=== PATIENT | female | born 1990 ===

== ENCOUNTER 2019-05-04 21:07 | Inpatient (IN) | payer OTHER ==
[~2019-05-04] VITALS: Ht 162.6 cm; Wt 69.4 kg
[2019-05-04 21:30] VITALS: BP 121/77; Ht 162.6 cm; Wt 69.4 kg
[2019-05-04] MEDS ORDERED: PREN-127 PO (21:44)
[2019-05-04] MEDS ORDERED: FAMOTIDINE(*) 20MG/50ML PREMIX 50 ML IVPB PRN (22:01)
[2019-05-04] MEDS ORDERED: OXYTOCIN 30 UNIT/NS 500 ML 500 ML IV PRN (22:01)
[2019-05-04] MEDS ORDERED: LR(*) 1000 ML BAG 1,000 ML IV SCH (22:01)
[2019-05-04] MEDS ORDERED: LIDOCAINE 1% LOCAL 300 MG/30ML INJ PRN (22:05)
[2019-05-04] MEDS ORDERED: fentaNYL CITR 100 MCG/2 ML AMP IVP PRN (22:05)
[2019-05-04] MEDS ORDERED: METOCLOPRAMIDE 10 MG/2 ML SDV IVP PRN (22:05)
[2019-05-04] MEDS ORDERED: LIDOCAINE/SOD BICARB 8.4% SYR SC PRN (22:05)
[2019-05-04] MEDS ORDERED: cefOXitin/DEX(*) 2GM/50ML PREM 50 ML IVPB PRN (22:05)
[2019-05-04] MEDS ORDERED: PENICILLIN G 5 MILLUN VIAL 5 MIU in NS(*) 0.9% 100 ML MINI-BAG 100 ML IVPB ONE (22:05)
[2019-05-04] MEDS ORDERED: fentaNYL CITR 100 MCG/2 ML AMP IT PRN (22:15)
[2019-05-04] MEDS ORDERED: BUPIVACAINE 0.25% MPF INJ EPI PRN (22:15)
[2019-05-04] MEDS ORDERED: LIDOCAINE/PF 2% 200MG/10ML AMP 200 MG/10 ML AMPUL EPI PRN (22:15)
[2019-05-04] MEDS ORDERED: BUPIVACAINE 0.5% INJ 30ML VIAL EPI PRN (22:15)
[2019-05-04] MEDS ORDERED: LIDO/EPI 2% MPF 1:200,000 20ML EPI PRN (22:15)
[2019-05-04] MEDS ORDERED: FENTANYL/ROPIVACAINE 100 ML BAG EPI PRN (22:15)
[2019-05-04] MEDS ORDERED: ePHEDrine 25 MG/5 ML DISP.SYR IVP PRN (22:15)
[2019-05-04 22:41] LABS: PLATELET COUNT, AUTOMATED 231 K/uL (150-450)
[2019-05-05] MEDS ORDERED: CALCIUM CARBONATE 500 MG CHEW PO PRN (01:20)
[2019-05-05] MEDS ORDERED: ACETAMINOPHEN 325 MG TAB PO PRN ×2 (01:20→09:30)
[2019-05-05] MEDS ORDERED: ONDANSETRON 4 MG/2 ML VIAL IVP PRN (01:20)
[2019-05-05] MEDS ORDERED: PENICILLIN G 2.5 MILLUN/100 ML 100 ML IVPB SCH ×3 (02:00→18:00)
[2019-05-05] MEDS ORDERED: OXYTOCIN 30 UNIT/NS 500 ML 500 ML IV PRN (02:19)
[2019-05-05] MEDS ORDERED: GLYCERIN/WITCH HAZEL LEAF 1 PK TP PRN (09:30)
[2019-05-05] MEDS ORDERED: MAGNESIUM HYDROXIDE* 30ML UDCP PO PRN (09:30)
[2019-05-05] MEDS ORDERED: APAP/HYDROCODONE 325/5 TAB PO PRN (09:30)
[2019-05-05] MEDS ORDERED: BENZOCAINE 20% 60 ML BTL TP PRN (09:30)
[2019-05-05] MEDS ORDERED: INFLUENZA VIRUS VAC 0.5ML SYR IM ONLY ONE (09:30)
[2019-05-05] MEDS ORDERED: HYDROCORTISONE 2.5% CR 30GM TB PR PRN (09:30)
[2019-05-05] MEDS ORDERED: LANOLIN OINT 7 GM TUBE TP PRN (09:30)
--- NOTE | 2019-05-05 09:39 | History & Physical ---
History of Present Illness Age of Patient: 28 : 2 Para or TPAL: 0 EDC per LMP: May 22, 2019 Estimated Gestational Age: 37.4 Chief Complaint Ruptured membranes History of Present Illness Presents for loss of fluid and confirmed with amnisure. complicated by 5 cm fibroid mid lateral uterus but otherwise uncomplicated. Past Medical, Surgical, Family and Obstetric Histories reviewed. Please see ACOG chart. History Allergies: Coded Allergies: No Known Drug Allergies (Unverified , 05/04/19) Med Rec Home Meds Reported Medications Vits W-Ca,Fe,Fa(<1MG) ( VITAMINS) 1 Each Tablet, 1 EACH PO DAILY, TAB 05/04/19 Review of Systems All Systems Reviewed/Normal: Yes, Except as Noted Exam General Exam Vital Signs Vital Signs Date Time Temp Pulse Resp B/P (MAP) Pulse Ox O2 Delivery O2 Flow Rate FiO2 05/04/19 21:30 98.5 78 16 121/77 (92) 96 Room Air General Apperance: Alert/Awake/No Acute Distress Neuro: No Gross deficits Eyes: Normal Extraocular Movement & Vison Respiratory: No Respiratory Distress, Clear to Auscultation Abdomen: Soft, Non-Tender, Non-Distended, Gravid - Non-Tender Extremities: No Cyanosis,Clubbing or Edema Integumentary: Skin Intact without Lesions or Rash Psychological: Alert & Oriented X3, Appropriate Mood & Affect Cervical Dialation: 3 Cervical Effacement (%): 90 Station: -1 Presentation: Vertex Fetus Heart Tone Variabilty: Moderate FHT Accelerations: 15X15 FHT Category: I Medical Decision Making Data Points Result Diagram: 05/04/19 2236 VTE Prophylasis: Adult Deep Vein Thrombosis/Pulmonary: No Pharmacological Contraindicati: Pt at Low Risk for VTE Mechanical Contraindications: Pt at Low Risk for VTE 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 Expecting . MAURI OSWALD MD May 05, 2019 09:39
--- NOTE | 2019-05-05 09:41 | OB Delivery Note ---
Delivery Note Vaginal Delivery Type: Spont. Vaginal Delivery Delivery Date: May 05, 2019 Delivery Time: 08:59 Estimated Gestational Age(wks): 37.4 Infant Sex: Male Pierron Apgars: 1 Minute (8), 5 Minute (9) Repair Needed: Laceration, 2nd Degree Estimated Blood Loss: 100 Delivery Complications: Laceration Notes: Presented with report of ruptured membranes and leaking fluid. 3 cm on admission. Progressed to 5 cm by 2 am and 7 cm by 0500. Completely dilated [id number] with Pitocin augmentation. Delivered in ZOE position over second degree laceration. Placenta delivered spontaneous and intact. Repair with 2-0 Chromic and local anesthetic with excellent result. No complications. Resistor Coater in Attendence: No Copies to: MAURI OSWALD MD ; MAURI OSWALD MD May 05, 2019 09:41
[2019-05-05] MEDS: IBUPROFEN 800 MG TAB PO SCH ×2 (11:00→19:38)
[2019-05-05] MEDS ORDERED: LIDOCAINE 1% LOCAL 300 MG/30ML 30 ML ONE (13:17)
[2019-05-05 15:05] VITALS: BP 114/67
[2019-05-05 19:25] VITALS: BP 119/69
[2019-05-05] MEDS: DOCUSATE CALCIUM 240 MG CAP PO SCH (20:59)
[2019-05-06 00:07] VITALS: BP 120/67
[2019-05-06 03:35] VITALS: BP 107/61
[2019-05-06] MEDS: IBUPROFEN 800 MG TAB PO SCH ×3 (03:38→18:33)
[2019-05-06 07:39] VITALS: BP 113/72
--- NOTE | 2019-05-06 08:37 | OB/GYN Progress Note ---
OB Subjective Progress Notes Subjective Pt doing well. No problems. Feeling better but still fatigued. Breast feeding struggles so will need extra time before circumcision. GI: NEG Nausea : Voiding Well Pain: Mild OB Objective Physical Exam Vital Signs Date Time Temp Pulse Resp B/P (MAP) Pulse Ox O2 Delivery O2 Flow Rate FiO2 05/06/19 07:39 97.6 76 18 113/72 (86) 97 Room Air Intake and Output 05/06/19 07:04 Intake Total 480 ml Balance 480 ml Intake Oral 480 ml # Voids 1 General Appearance: Alert/Awake/No Acute Distress Neurological: No Gross deficits Eyes: Normal Extraocular Movement & Vison Cardiovascular: Normal Rhythm & Peripheral Pulses Respiratory: No Respiratory Distress Abdomen: Soft, Non-Tender, Non-Distended, Fundus Firm, Non-Tender Extremities: No Cyanosis,Clubbing or Edema Integumentary: Skin Intact without Lesions or Rash Psychological: Alert & Oriented X3, Appropriate Mood & Affect Result Diagram: 05/06/19 0639 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 Will plan circumcision tomorrow and hopefully discharge then. MAURI OSWALD MD May 06, 2019 08:36
[2019-05-06] MEDS: DOCUSATE CALCIUM 240 MG CAP PO SCH ×2 (09:18→22:00)
[2019-05-06 11:02] VITALS: BP 107/72
[2019-05-06 16:55] VITALS: BP 110/71
[2019-05-06 20:17] VITALS: BP 105/82
[2019-05-07 00:33] VITALS: BP 109/71
[2019-05-07] MEDS: IBUPROFEN 800 MG TAB PO SCH (05:12)
[2019-05-07 05:33] VITALS: BP 110/70
[2019-05-07 07:26] VITALS: BP 117/76
--- NOTE | 2019-05-07 08:23 | OB/GYN Progress Note ---
OB Subjective Progress Notes Subjective Doing well. Pain improving and swelling going down. Voiding well. No BM but feels it coming. Baby on bili lights and needs more time working on feeding. She is pumping and getting supply. GI: NEG Nausea : Voiding Well Pain: Mild OB Objective Physical Exam Vital Signs Date Time Temp Pulse Resp B/P (MAP) Pulse Ox O2 Delivery O2 Flow Rate FiO2 05/07/19 05:33 97.8 70 18 110/70 (83) 95 Room Air Intake and Output 05/07/19 07:04 Intake Total 600 ml Balance 600 ml Intake Oral 600 ml # Voids 4 General Appearance: Alert/Awake/No Acute Distress Neurological: No Gross deficits Eyes: Normal Extraocular Movement & Vison Cardiovascular: Normal Rhythm & Peripheral Pulses Respiratory: No Respiratory Distress Abdomen: Soft, Non-Tender, Non-Distended, Fundus Firm, Non-Tender Extremities: No Cyanosis,Clubbing or Edema Integumentary: Skin Intact without Lesions or Rash Psychological: Alert & Oriented X3, Appropriate Mood & Affect Result Diagram: 05/06/19 0639 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 Circ for baby when ready either here or in office. Reviewed discharge instructions and precautions. F/U at 6 weeks. MAURI OSWALD MD May 07, 2019 08:23
[2019-05-07] MEDS ORDERED: IBUP800T37 PO (08:25)
--- NOTE | 2019-05-07 08:27 | OB/GYN Discharge Summary ---
Discharge Summary Reason for Hosp/Final Diag: (1) Uterine fibroid during , antepartum (2) 37 weeks gestation of (3) care and examination immediately after delivery Hospital Course & Plan: s/p Discharge to room in. Circ for baby when ready either here or in office. Reviewed discharge instructions and precautions. F/U at 6 weeks. Lates Vital Signs Vital Signs Date Time Temp Pulse Resp B/P (MAP) Pulse Ox O2 Delivery O2 Flow Rate FiO2 05/07/19 05:33 97.8 70 18 110/70 (83) 95 Room Air Weight (Pounds): 153 Result Diagram: 05/06/19 0639 Condition: Improved Discharge: Self Care, Rooming In Home Meds Reported Medications Vits W-Ca,Fe,Fa(<1MG) ( VITAMINS) 1 Each Tablet, 1 EACH PO DAILY, TAB 05/04/19 Follow up Referrals: LAP WELDER - In 6 Weeks @ [facility] with MAURI WARD MD Follow up with: Dr. Ward [phone] Follow up in: 6 wks PP or PO Discharge Diet: As Tolerates Discharge Activity: As Tolerates, No Heavy Lifting x 6 wks, No Heavy Lifting > 10lb, Pelvic Rest Copies to: MAURI WARD MD ; MAURI WARD MD May 07, 2019 08:26
[2019-05-07] MEDS ORDERED: DIPHTH/TETANUS/ACEL. PERTUSSIS IM ONLY ONE (09:30)
[2019-05-07] MEDS ORDERED: MEASLES,MUMP,RUBELLA VAC 0.5ML SUBQ ONE (09:30)
[2019-05-07] MEDS: DOCUSATE CALCIUM 240 MG CAP PO SCH (09:54)
== END 2019-05-07 11:20 | disposition home or self-care (01) | DRG 807 ==
LOC: OB 21:07 → OBSVTOIN 21:07
PROVIDERS: ADMIT Obstetrics & Gynecology; ATTEND Obstetrics & Gynecology
PROC: 10E0XZZ Delivery of Products of Conception, External Approach (ICD-10-PCS; principal; 2019-05-04)
PROC: 0KQM0ZZ Repair Perineum Muscle, Open Approach (ICD-10-PCS; 2019-05-04)
DX: O99.824 Streptococcus B carrier state complicating childbirth (principal); Z37.0 Single live birth; O70.1 Second degree perineal laceration during delivery; O34.13 Maternal care for benign tumor of corpus uteri, third trimester; Z3A.37 37 weeks gestation of pregnancy
CPT/HCPCS: 36415; 84112; 85025; 85027; 86703; 86850; 86900; 86901; J2540; J2590; J7120